=== PATIENT | male | born 1990 | race Two or more races ===

== ENCOUNTER 2024-08-18 12:51 | Emergency (ER) | payer OTHER ==
[~2024-08-18] VITALS: Ht 170.2 cm; Wt 115.7 kg
[2024-08-18] MEDS ORDERED: LOPRESSOR25 MG PO (13:10)
[2024-08-18] MEDS ORDERED: cloNIDine HCL 0.2 MG TABLET PO ONE (13:30)
[2024-08-18] MEDS ORDERED: CLONIDINE HCL 0.1 MG TABLET PO ONE (13:39)
[2024-08-18] MEDS ORDERED: ENALAPRILAT DIHYDRATE 2.5 MG/2 ML VIAL IV ONE (15:45)
[2024-08-18] MEDS ORDERED: ENALAPRILAT DIHYDRATE 1.25 MG/ML VIAL IV ONE (15:52)
[2024-08-18] MEDS ORDERED: LORazepam 1 MG TABLET PO ONE (16:00)
[2024-08-18] MEDS ORDERED: NIFEDIPINE 10 MG CAPSULE PO ONE (17:45)
[2024-08-18 18:10] LABS: BASO % 0.5 % (0.1-1.2); EOS # 0.28 (0.04-0.54); EOS % 2.6 % (0.7-7.0); HEMATOCRIT 42.3 % (40.1-51.0); HEMOGLOBIN 14.4 g/dL (13.7-17.5); LYMPH # 2.63 (1.18-3.74); LYMPH % 24.2 % (19.3-53.1); MEAN CORPUSCULAR HEMOGLOBIN 27.7 pg (25.6-32.2); MONO # 0.64 (0.24-0.82); MONO % 5.9 % (4.7-12.5); NEUT # 7.22 (1.56-6.13); NEUT % 66.2 % (34.0-71.1); PLATELET COUNT 281 K/uL (163-369); RED BLOOD COUNT 5.19 M/uL (4.63-6.08); RED CELL DISTRIBUTION WIDTH 13.2 % (11.6-14.4)
[2024-08-18 18:20] LABS: URINE APPEARANCE Clear; URINE BILIRRUBIN Negative (NEGATIVE); URINE BLOOD Trace; URINE COLOR Yellow; URINE GLUCOSE Negative (NEGATIVE); URINE KETONE Negative (NEGATIVE); URINE LEUKOCYTE Negative; URINE NITRATE Negative; URINE PROTEIN Negative (NEGATIVE); URINE UROBILINOGEN 0.2 E.U./dl
[2024-08-18 18:21] LABS: URINE BACTERIA 13.4 uL (0.0-1933); URINE EPITHELIAL CELLS 1.4 uL (0.0-38.8); URINE RBC 5.3 uL (0.0-20.8); URINE WBC 2.3 uL (0.0-23.2)
[2024-08-18 18:25] LABS: URINE CAST 0.14 uL (0.0-1.40)
[2024-08-18 18:29] LABS: POTASSIUM 3.73 mEq/L (3.5-5.1)
[2024-08-18 18:38] LABS: ALBUMIN 3.4 gm/dL (3.4-5.0); BILIRUBIN TOTAL 0.36 mg/dL (0.3-1.2); CALCIUM 9.3 mg/dL (8.5-10.1); CREATININE SERUM 0.7 mg/dL (0.70-1.30); GFR 129.88; GLOBULINA 4.8 G/DL (2.4-3.5); INR 1.03; PARTIAL THROMBOPLASTIN TIME 27.1 SECONDS (22.0-34.0); PROTHROMBIN TIME 11.2 SECONDS (9.0-11.5); TOTAL PROTEIN 8.2 gm/dL (6.4-8.2)
[2024-08-18] MEDS ORDERED: TOPROL XL25 M1 PO (19:23)
== END 2024-08-18 19:26 | disposition home or self-care (01) ==
LOC: ER 13:45
PROVIDERS: General Practice
DX: I10 Essential (primary) hypertension (principal); R51.9 Headache, unspecified

== ENCOUNTER 2024-08-20 22:50 | Emergency (ER) | payer OTHER ==
[~2024-08-20] VITALS: Ht 170.2 cm; Wt 115.7 kg
[~2024-08-20 22:50] MED LIST: LOPRESSOR25 MG PO; TOPROL XL25 M1 PO
[2024-08-21] MEDS ORDERED: LABETALOL HCL 100 MG/20 ML ML IV PUSH STA (00:28)
[2024-08-21 01:24] LABS: BASO % 0.5 % (0.1-1.2); EOS % 2.7 % (0.7-7.0); HEMATOCRIT 42.3 % (40.1-51.0); HEMOGLOBIN 14.5 g/dL (13.7-17.5); LYMPH # 2.98 (1.18-3.74); MEAN CORPUSCULAR HEMOGLOBIN 27.8 pg (25.6-32.2); MONO # 0.79 (0.24-0.82); MONO % 7.2 % (4.7-12.5); NEUT # 6.86 (1.56-6.13); NEUT % 62.1 % (34.0-71.1); PLATELET COUNT 317 K/uL (163-369); RED BLOOD COUNT 5.22 M/uL (4.63-6.08); RED CELL DISTRIBUTION WIDTH 12.9 % (11.6-14.4)
[2024-08-21 01:49] LABS: ALBUMIN 3.5 gm/dL (3.4-5.0); BILIRUBIN TOTAL 0.21 mg/dL (0.3-1.2); CALCIUM 9.2 mg/dL (8.5-10.1); CREATININE SERUM 0.7 mg/dL (0.70-1.30); GFR 129.88; GLOBULINA 4.9 G/DL (2.4-3.5); POTASSIUM 3.48 mEq/L (3.5-5.1); TOTAL PROTEIN 8.4 gm/dL (6.4-8.2)
== END 2024-08-21 02:42 | disposition home or self-care (01) ==
LOC: ER 23:59
DX: I10 Essential (primary) hypertension (principal)